=== PATIENT | male | born 1960 | race Caucasian/White ===

== ENCOUNTER 2024-05-29 12:55 | Emergency (ER) | payer MEDICARE, OTHER ==
[~2024-05-29] VITALS: Ht 188 cm; Wt 90.2 kg
[2024-05-29] MEDS ORDERED: RABIES IMMUNE GLOBULIN 1500 INTERNATIONAL UNIT/5ML VIAL IM.IMMUN ONE (14:55)
[2024-05-29 16:32] VITALS: BP 171/97; TEMP 97.9; O2SAT 98
[2024-05-29] MEDS: RABIES VACCINE HUMAN 2.5 INTERNATIONAL UNITS/ML VIAL IM ONE (16:49)
[2024-05-29] MEDS: RABIES IMMUNE GLOBULIN 300 INTERNATIONAL UNITS/1ML VIAL IM.IMMUN ONE (16:50)
[2024-05-29] MEDS: RABIES IMMUNE GLOBULIN 1500 INTERNATIONAL UNIT/5ML VIAL IM.IMMUN ONE (16:51)
== END 2024-05-29 17:07 | disposition home or self-care (01) ==
LOC: M ED 12:55
DX: Z29.14 Encounter for prophylactic rabies immune globulin (principal); Z23 Encounter for immunization

== ENCOUNTER 2024-06-01 07:55 | Emergency (ER) | payer MEDICARE, OTHER ==
[~2024-06-01] VITALS: Ht 188 cm; Wt 90.4 kg
[2024-06-01 07:55] VITALS: BP 160/88; TEMP 97.9; O2SAT 98
[2024-06-01] MEDS: RABIES VACCINE HUMAN 2.5 INTERNATIONAL UNITS/ML VIAL IM ONE (08:33)
== END 2024-06-01 08:40 | disposition home or self-care (01) ==
LOC: M ED 07:55
DX: Z29.14 Encounter for prophylactic rabies immune globulin (principal); Z23 Encounter for immunization